=== PATIENT | female | born 1955 | race Two or more races ===

== ENCOUNTER → 2016-10-06 | Outpatient (CLI) | payer MEDICARE ==
[2016-10-06 14:51] LABS: HEMOGLOBIN 15.6 g/dL (12.2-16.2); LYMPH # 2.1 K/mm3 (0.7-4.5); LYMPH % 38.2 % (10-50.0)
[2016-10-06 15:18] LABS: BILIRUBIN, INDIRECT 0.27 mg/dL (0-0.9); BUN 16 mg/dL (7-18)
[2016-10-06 15:20] LABS: GFR (ESTIMATED) 57 ML/MIN (59-)
== END ==
LOC: MAY-LAB 14:41
PROVIDERS: Internal Medicine
DX: E78.5 Hyperlipidemia, unspecified (principal)